=== PATIENT | female | born 1980 | race Caucasian/White ===

== ENCOUNTER 2017-03-09 22:06 | Emergency (ER) | payer OTHER ==
[~2017-03-09] VITALS: Ht 154.9 cm; Wt 76.4 kg
[~2017-03-09 22:06] MED LIST: MAGIC MOUTHWASH1 ML MM; Motrin PO; NAPROSYN500 MG PO; NASAL SPRAY SIN30 ML BOTH NARES; NO MEDS; TRAMADOL HCL50 MG PO
[2017-03-09 22:18] VITALS: BP 116/77
[2017-03-09] MEDS ORDERED: TINACTIN150 GM TP (22:23)
== END 2017-03-09 22:46 | disposition home or self-care (01) ==
LOC: EME 22:06
DX: B35.3 Tinea pedis (principal)
CPT/HCPCS: 99281; 99282